=== PATIENT | female | born 1990 | race Caucasian/White ===

== ENCOUNTER 2017-10-20 03:37 | Observation (INO) | payer OTHER ==
[~2017-10-20] VITALS: Ht 165.1 cm; Wt 70.2 kg
[2017-10-20] MEDS ORDERED: SODIUM CHLORIDE 0.9% 1,000ML IVBOLUS ONE (04:00)
[2017-10-20] MEDS ORDERED: NALOXONE 0.4 MG/ML, 1ML IVPush PRN (04:00)
[2017-10-20] MEDS ORDERED: ONDANSETRON ODT 4 MG PO ONE (04:00)
[2017-10-20] MEDS ORDERED: ONDANSETRON ODT 4 MG ONE (04:14)
[2017-10-20 04:20] LABS: BASOPHILS # (AUTO) 0.02 x10^3/uL (0-0.1); BASOPHILS % (AUTO) 0 % (0-1); EOSINOPHILS # (AUTO) 0.01 x10^3/uL (0-0.4); EOSINOPHILS % (AUTO) 0 % (1-7); LYMPHOCYTES # (AUTO) 1.04 x10^3/uL (1-3.4); LYMPHOCYTES % (AUTO) 8 % (22-44); MD NO; MEAN CORPUSCULAR HEMOGLOBIN 32.9 pg (27.0-34.8); MEAN CORPUSCULAR HGB CONC 34.5 g/dL (32.4-35.8); MEAN CORPUSCULAR VOLUME 95.2 fL (80-100); MEAN PLATELET VOLUME 6.5 fL (7.4-10.4); MONOCYTES # (AUTO) 0.41 x10^3/uL (0.2-0.8); MONOCYTES % (AUTO) 3 % (2-9); NEUTROPHILS # (AUTO) 10.91 x10^3/uL (1.8-6.8); NEUTROPHILS % (AUTO) 88 % (42-75); PLATELET COUNT 354 x10^3/uL (130-400); RED BLOOD COUNT 4.75 x10^6/uL (3.82-5.3); RED CELL DISTRIBUTION WIDTH 12.1 % (9.6-15.2)
[2017-10-20 04:31] LABS: ALANINE AMINOTRANSFERASE 22 U/L (12-78); ALBUMIN 3.9 g/dL (3.4-5.0); ANION GAP 8 mmol/L (5-15); CALCIUM 9.1 mg/dL (8.5-10.1); CHLORIDE 106 mmol/L (98-107); CREATININE 0.85 mg/dL (0.55-1.02)
[2017-10-20 04:34] LABS: SALICYLATE LEVEL < 1.7 mg/dL (2.8-20.0)
[2017-10-20 04:36] LABS: ALKALINE PHOSPHATASE 74 U/L (45-117); BILIRUBIN,TOTAL 0.6 mg/dL (0.2-1.0); TOTAL PROTEIN 7.7 g/dL (6.4-8.2)
[2017-10-20 04:44] LABS: ACETAMINOPHEN < 2 mcg/mL (10-30)
[2017-10-20] MEDS ORDERED: TEMAZEPAM 15 MG CAPSULE PO PRN (08:00)
[2017-10-20] MEDS ORDERED: hydrALAzine 20 MG/ML, 1ML IVPush PRN (08:00)
[2017-10-20] MEDS ORDERED: ACETAMINOPHEN 325 MG TABLET PO PRN (08:00)
[2017-10-20] MEDS ORDERED: ONDANSETRON 2MG/ML, 2ML IVPush PRN (08:00)
[2017-10-20 08:07] LABS: AMPHETAMINE SCREEN, URINE Positive (Negative); BARBITURATE SCREEN, URINE Negative (Negative); BENZODIAZEPINE SCREEN, URINE Negative (Negative); CANNABINOID SCREEN, URINE Negative (Negative); COCAINE SCREEN, URINE Negative (Negative); METHADONE SCREEN, URINE Negative (Negative); OPIATE SCREEN, URINE Positive (Negative)
[2017-10-20 08:16] LABS: HCT (SEDRATE) 41.9 % (34.6-47.8)
[2017-10-20 08:39] LABS: FREE T4 (FREE THYROXINE) 1.14 ng/dL (0.76-1.46); THYROID STIMULATING HORMONE 0.155 mIU/L (0.358-3.740)
[2017-10-20 09:40] VITALS: BP 136/79
[2017-10-20] MEDS ORDERED: MAGNESIUM SULFATE PMX 1GM/100ML IVPB ONE (10:00)
[2017-10-20] MEDS: METHADONE 10 MG TABLET PO SCH ×4 (10:01→23:44)
[2017-10-20] MEDS: HEPARIN 5,000 UNITS/ML, 1ML SQ SCH ×3 (10:01→23:44)
[2017-10-20] MEDS: NICOTINE 14MG/24 HR PATCH.TD24 TD SCH (10:02)
[2017-10-20] MEDS: NS + 20MEQ KCL 1,000 ML IV SCH ×2 (10:46→23:45)
[2017-10-20] MEDS ORDERED: MAGNESIUM SULFATE 1 GM in SODIUM CHLORIDE 0.9% 50 ML IV ONE (11:00)
[2017-10-20] MEDS: ONDANSETRON ODT 4 MG PO PRN (17:05)
[2017-10-20 19:25] VITALS: BP 123/81
[2017-10-21 01:15] VITALS: BP 123/81
[2017-10-21] MEDS: METHADONE 10 MG TABLET PO SCH ×4 (04:56→21:20)
[2017-10-21 05:14] LABS: BASOPHILS # (AUTO) 0.03 x10^3/uL (0-0.1); BASOPHILS % (AUTO) 0 % (0-1); EOSINOPHILS # (AUTO) 0.05 x10^3/uL (0-0.4); EOSINOPHILS % (AUTO) 0 % (1-7); LYMPHOCYTES # (AUTO) 1.77 x10^3/uL (1-3.4); LYMPHOCYTES % (AUTO) 15 % (22-44); MD NO; MEAN CORPUSCULAR HEMOGLOBIN 32.4 pg (27.0-34.8); MEAN CORPUSCULAR HGB CONC 34.4 g/dL (32.4-35.8); MEAN CORPUSCULAR VOLUME 94.1 fL (80-100); MONOCYTES % (AUTO) 9 % (2-9); NEUTROPHILS # (AUTO) 8.79 x10^3/uL (1.8-6.8); NEUTROPHILS % (AUTO) 75 % (42-75); PLATELET COUNT 310 x10^3/uL (130-400); RED BLOOD COUNT 4.23 x10^6/uL (3.82-5.3); RED CELL DISTRIBUTION WIDTH 12.3 % (9.6-15.2)
[2017-10-21 05:23] LABS: ANION GAP 6 mmol/L (5-15); CALCIUM 8.3 mg/dL (8.5-10.1); CHLORIDE 107 mmol/L (98-107); CREATININE 0.79 mg/dL (0.55-1.02)
[2017-10-21 07:15] VITALS: BP 115/76
[2017-10-21] MEDS: PANTOPRAZOLE 40 MG IV IVPush SCH (07:48)
[2017-10-21] MEDS: HEPARIN 5,000 UNITS/ML, 1ML SQ SCH ×2 (07:48→16:00)
[2017-10-21] MEDS: NS + 20MEQ KCL 1,000 ML IV SCH ×2 (10:54→21:20)
[2017-10-21] MEDS: NICOTINE 14MG/24 HR PATCH.TD24 TD SCH (10:55)
[2017-10-21 13:21] VITALS: BP 115/76
[2017-10-21 19:20] VITALS: BP 128/82
[2017-10-22] MEDS: HEPARIN 5,000 UNITS/ML, 1ML SQ SCH ×2 (00:02→07:29)
[2017-10-22 00:27] VITALS: BP 113/72
[2017-10-22] MEDS: ONDANSETRON ODT 4 MG PO PRN ×2 (02:21→07:37)
[2017-10-22 05:04] LABS: BASOPHILS # (AUTO) 0.03 x10^3/uL (0-0.1); BASOPHILS % (AUTO) 0 % (0-1); EOSINOPHILS # (AUTO) 0.02 x10^3/uL (0-0.4); EOSINOPHILS % (AUTO) 0 % (1-7); LYMPHOCYTES % (AUTO) 24 % (22-44); MD NO; MEAN CORPUSCULAR HEMOGLOBIN 32.7 pg (27.0-34.8); MEAN CORPUSCULAR HGB CONC 34.4 g/dL (32.4-35.8); MEAN CORPUSCULAR VOLUME 95.1 fL (80-100); MONOCYTES # (AUTO) 0.88 x10^3/uL (0.2-0.8); MONOCYTES % (AUTO) 10 % (2-9); NEUTROPHILS # (AUTO) 5.68 x10^3/uL (1.8-6.8); NEUTROPHILS % (AUTO) 65 % (42-75); PLATELET COUNT 269 x10^3/uL (130-400); RED BLOOD COUNT 3.97 x10^6/uL (3.82-5.3); RED CELL DISTRIBUTION WIDTH 11.7 % (9.6-15.2)
[2017-10-22 05:07] LABS: ANION GAP 5 mmol/L (5-15); CALCIUM 8.1 mg/dL (8.5-10.1); CHLORIDE 107 mmol/L (98-107); CREATININE 0.69 mg/dL (0.55-1.02)
[2017-10-22] MEDS: METHADONE 10 MG TABLET PO SCH ×2 (05:11→10:54)
[2017-10-22] MEDS: PANTOPRAZOLE 40 MG IV IVPush SCH (07:29)
[2017-10-22 08:41] VITALS: BP 118/72
[2017-10-22] MEDS: NICOTINE 14MG/24 HR PATCH.TD24 TD SCH (10:54)
[2017-10-22] MEDS: NS + 20MEQ KCL 1,000 ML IV SCH (10:54)
== END 2017-10-22 15:04 | disposition home or self-care (01) ==
LOC: ED 04:14 → EDIP 06:36 → 5SO 09:10
PROVIDERS: ADMIT Hospitalist; ATTEND Hospitalist
DX: G92 Toxic encephalopathy (principal); R41.82 Altered mental status, unspecified; D72.829 Elevated white blood cell count, unspecified; E83.42 Hypomagnesemia; F11.23 Opioid dependence with withdrawal; F12.10 Cannabis abuse, uncomplicated; F15.129 Other stimulant abuse with intoxication, unspecified; F19.94 Other psychoactive substance use, unspecified with psychoactive substance-induced mood disorder; R11.2 Nausea with vomiting, unspecified
CPT/HCPCS: 36415; 70450; 71045; 71046; 74018; 80048; 80053; 80307; 80329; 82140; 83690; 83735; 84100; 84439; 84443; 84703; 85025; 85651; 93005; 96361; 96365; 96372; 96375; 99285; C9113; G0378; J1644; J2405; J3475; J3480; J7030; Q0162; G0480

== ENCOUNTER 2018-09-02 12:17 | Emergency (ER) | payer MEDICAID, OTHER ==
[~2018-09-02] VITALS: Ht 167.6 cm; Wt 61.5 kg
--- NOTE | 2018-09-02 12:53 | NUR ---
Pt presents to ED by EMS from [place] for medical clearance from opiate/heroin withdrawal. VAISHNAVIN. Pt connected to NIBP cuff, continous pulse ox, and awake overnight monitor. Call light within reach. Both bedrails up for safety measures. Pt denies cp, sob, vomitting, diarrhea, constipation, syncope, or trauma. No needs expressed at this time.
[2018-09-02] MEDS ORDERED: PROMETHAZINE 25 MG/ML, 1ML ONE (12:58)
[2018-09-02] MEDS ORDERED: PROMETHAZINE 25 MG/ML, 1ML IM ONE (13:00)
[2018-09-02 13:06] LABS: MICROSCOPIC NOT IND
[2018-09-02 13:08] LABS: BASOPHILS # (AUTO) 0.02 x10^3/uL (0-0.1); BASOPHILS % (AUTO) 0 % (0-1); EOSINOPHILS # (AUTO) 0.04 x10^3/uL (0-0.4); EOSINOPHILS % (AUTO) 1 % (1-7); LYMPHOCYTES # (AUTO) 1.35 x10^3/uL (1-3.4); LYMPHOCYTES % (AUTO) 20 % (22-44); MD NO; MEAN CORPUSCULAR VOLUME 97.1 fL (80-100); MEAN PLATELET VOLUME 6.6 fL (7.4-10.4); MONOCYTES # (AUTO) 0.51 x10^3/uL (0.2-0.8); MONOCYTES % (AUTO) 8 % (2-9); NEUTROPHILS # (AUTO) 4.88 x10^3/uL (1.8-6.8); NEUTROPHILS % (AUTO) 72 % (42-75); PLATELET COUNT 335 x10^3/uL (130-400); RED BLOOD COUNT 4.91 x10^6/uL (3.82-5.3); RED CELL DISTRIBUTION WIDTH 12.1 % (9.6-15.2)
[2018-09-02 13:09] LABS: CULTURE INDICATED? NO
[2018-09-02 13:20] LABS: ALANINE AMINOTRANSFERASE 22 U/L (12-78); ALBUMIN 3.8 g/dL (3.4-5.0); ANION GAP 5 mmol/L (5-15); CALCIUM 9.6 mg/dL (8.5-10.1); CHLORIDE 108 mmol/L (98-107)
--- NOTE | 2018-09-02 13:24 | NUR ---
Provided medication per [facility]. Provided warm blankets, pillow, and fiona hugger blanket warmer per request. NADN. Pt appreciative. Bedrails up x 2 for safety measures, call light within reach. No needs expressed at this time.
[2018-09-02 13:25] LABS: ALKALINE PHOSPHATASE 98 U/L (45-117); BILIRUBIN,TOTAL 0.3 mg/dL (0.2-1.0); TOTAL PROTEIN 7.8 g/dL (6.4-8.2)
[2018-09-02 14:28] VITALS: BP 125/89
--- NOTE | 2018-09-02 14:48 | NUR ---
Pt asking for assistance to restroom. Disconnected pt from all monitors, pt rested back on gurney, and asked to be covered with blankets. Pt declined getting up to go to restroom.
--- NOTE | 2018-09-02 14:54 | NUR ---
Patient given discharge instructions and they have confirmed that they understand the instructions. Patient ambulatory with steady gait. Pt left with all personal belongings, dc paperwork and medical clearance, and taxi voucher to [place]. Pt encouraged to return to ED if symptoms worsen or change.
== END 2018-09-02 14:57 | disposition home or self-care (01) ==
LOC: ED 14:51
DX: F11.23 Opioid dependence with withdrawal (principal); F32.9 Major depressive disorder, single episode, unspecified; F17.210 Nicotine dependence, cigarettes, uncomplicated
CPT/HCPCS: 36415; 80053; 81003; 84703; 85025; 96372; 99283; J2550